=== PATIENT | female | born 1995 | race Native Hawaiian/Other Pacific Islander ===

== ENCOUNTER 2022-09-12 17:54 | Inpatient (IN) | payer SELFPAY ==
[~2022-09-12] VITALS: Ht 149 cm; Wt 75.1 kg
[2022-09-12 18:40] VITALS: BP 121/76
[2022-09-12] MEDS ORDERED: MINERAL OIL 30 ML UDC TOP PRN (19:30)
[2022-09-12] MEDS ORDERED: LACTATED RINGERS 1,000 ML IV SCH (19:30)
[2022-09-12] MEDS ORDERED: D5 LR IV SOLUTION 1,000 ML IV SCH (19:30)
[2022-09-12 19:36] LABS: BASOPHILS % (AUTO) 0 % (0-10); EOSINOPHILS % (AUTO) 1 % (0-10); HEMATOCRIT 37 % (35-52); HEMOGLOBIN 12.7 g/dL (11.5-16.0); LYMPHOCYTES % (AUTO) 18 % (12-44); MEAN CORPUSCULAR HEMOGLOBIN 31 pg (25-34); MEAN CORPUSCULAR HGB CONC 34 g/dL (32-36); MEAN CORPUSCULAR VOLUME 89 fL (80-99); MEAN PLATELET VOLUME 10.4 fL (9.0-12.2); MONOCYTES # (AUTO) 0.5 10^3/uL (0.0-1.0); MONOCYTES % (AUTO) 8 % (0-12); NEUTROPHILS # (AUTO) 4.1 10^3/uL (1.8-7.8); NEUTROPHILS % (AUTO) 72 % (42-75); PLATELET COUNT 174 10^3/uL (130-400); WHITE BLOOD COUNT 5.7 10^3/uL (4.3-11.0)
[2022-09-12 19:43] LABS: BILIRUBIN,URINE NEGATIVE (NEGATIVE); CLARITY,URINE SL CLOUDY; COLOR,URINE YELLOW; GLUCOSE, URINE (UA) NEGATIVE (NEGATIVE); KETONES,URINE NEGATIVE (NEGATIVE); LEUKOCYTE ESTERASE ,URINE NEGATIVE (NEGATIVE); NITRITE,URINE NEGATIVE (NEGATIVE); PROTEIN,URINE NEGATIVE (NEGATIVE)
[2022-09-12 19:52] LABS: BACTERIA,URINE TRACE /HPF; SQUAMOUS EPITHELIAL CELL,UR 25-50 /HPF
[2022-09-12 20:20] VITALS: BP 121/76
[2022-09-12] MEDS: LACTATED RINGERS 1,000 ML IV SCH (20:35)
[2022-09-12 20:54] VITALS: BP 121/81
[2022-09-12 23:00] VITALS: BP 119/80
[2022-09-13] VITALS (44 sets, daily range): BP systolic 107–146; BP diastolic 54–92
[2022-09-13] MEDS: LACTATED RINGERS 1,000 ML IV SCH ×2 (04:11→11:38)
[2022-09-13] MEDS ORDERED: D5 LR IV SOLUTION 1,000 ML IV SCH (08:00)
[2022-09-13] MEDS ORDERED: OXYTOCIN PRE-MIX DRIP 500 ML IV SCH (09:00)
[2022-09-13] MEDS: CATHETER FLUSH 10 ML SYR IV SCH ×2 (09:07→22:00)
[2022-09-13] MEDS ORDERED: LIDOCAINE 1% INJ 10 ML VIAL INJ ONE (09:15)
--- NOTE | 2022-09-13 11:07 | History & Physical-OB ---
OB - Chief Complaint & HPI Date/Time Date of Admission: Date of Admission: Sep 12, 2022 at 17:54 Date seen by a Provider: Sep 13, 2022 Time Seen by a Provider: 08:10 Chief Complaint/History OB-Reason for Admission/Chief: Induction of Labor Hx : 1 Expected Date of Delivery: Sep 17, 2022 Gestational Age in Weeks: 39 Gestational Age in Days: 2 Indication for induction: medical complication (GDM) History of Labs O+, Ab neg, Rub NON IMM, HIV/RPR/HepC NR, Hep B Pos but confirmatory test neg and repeat was Neg Allergies and Home Medications Allergies Coded Allergies: No Known Drug Allergies (Unverified , 09/12/22) Patient Home Medication List Home Medication List Reviewed: Yes OB - History Hx of Present Care: Yes Ultrasounds: Normal mid trimester US Obstetrical Complications: Gestational Diabetes (On Metformin) Medical Complications: None Information Maternal Gestational Diabetes: Yes Obstetrical History Hx : 1 Number of Living Children: 0 Patient Past Medical History None Social History/Family History Alcohol Use: Denies Use Recreational Drug Use: No Smoking Cessation: Never smoker Immunizations Influenza Vaccine Up-to-Date: No; Not Current Tetanus Booster (TDap): Less than 5yrs Rubella: not immune RPR/VDRL: Negative GBS Status: Negative HBsAG: Negative OB - Admission Exam Physical Exam Vitals: Vital Signs 09/12/22 09/13/22 20:20 06:34 Temp 36.5 Pulse 69 Resp 18 B/P (MAP) 135/75 (95) Pulse Ox 99 O2 Delivery Room Air HEENT: NCAT Heart: Rhythm Normal Lungs: Clear Abdomen: Gravid Cervical Dilatation: 5cm Effacement: 75% Station: -1 Membranes: Intact Heart Rate: 140's Accelerations: Accelerations Present Decelerations: No Decelerations Contractions on Admission: < 5 Minutes Apart Intensity: Moderate Kellogg Scoring Tool (Modified) Dilation (cm): 1-2cm (1) Effacement (%): 51-79% (2) Descent/Station: -1,0 (2) Cervix Consistency: Medium(1) Cervix Position: Anterior (2) Labs Laboratory Tests Test 09/12/22 18:50 09/12/22 19:32 09/12/22 19:40 09/13/22 00:04 Range/Units Glucose Level 97 70-105 MG/DL White Blood Count 5.7 4.3-11.0 10^3/uL Red Blood Count 4.16 3.80-5.11 10^6/uL Hemoglobin 12.7 11.5-16.0 g/dL Hematocrit 37 35-52 % Mean Corpuscular Volume 89 80-99 fL Mean Corpuscular Hemoglobin 31 25-34 pg Mean Corpuscular Hemoglobin Concent 34 32-36 g/dL Red Cell Distribution Width 13.2 10.0-14.5 % Platelet Count 174 130-400 10^3/uL Mean Platelet Volume 10.4 9.0-12.2 fL Immature Granulocyte % (Auto) 1 % Neutrophils (%) (Auto) 72 42-75 % Lymphocytes (%) (Auto) 18 12-44 % Monocytes (%) (Auto) 8 0-12 % Eosinophils (%) (Auto) 1 0-10 % Basophils (%) (Auto) 0 0-10 % Neutrophils # (Auto) 4.1 1.8-7.8 10^3/uL Lymphocytes # (Auto) 1.0 1.0-4.0 10^3/uL Monocytes # (Auto) 0.5 0.0-1.0 10^3/uL Eosinophils # (Auto) 0.0 0.0-0.3 10^3/uL Basophils # (Auto) 0.0 0.0-0.1 10^3/uL Immature Granulocyte # (Auto) 0.1 0.0-0.1 10^3/uL Urine Color YELLOW Urine Clarity SL CLOUDY Urine pH 6.0 5-9 Urine Specific [place] <=1.005 1.016-1.022 Urine Protein NEGATIVE NEGATIVE Urine Glucose (UA) NEGATIVE NEGATIVE Urine Ketones NEGATIVE NEGATIVE Urine Nitrite NEGATIVE NEGATIVE Urine Bilirubin NEGATIVE NEGATIVE Urine Urobilinogen 0.2 < = 1.0 MG/DL Urine Leukocyte Esterase NEGATIVE NEGATIVE Urine RBC (Auto) NEGATIVE NEGATIVE Urine RBC NONE /HPF Urine WBC NONE /HPF Urine Squamous Epithelial Cells 25-50 H /HPF Urine Crystals NONE /LPF Urine Bacteria TRACE /HPF Urine Casts NONE /LPF Urine Mucus NEGATIVE /LPF Urine Culture Indicated NO Glucometer 130 H 70-110 MG/DL Test 09/13/22 06:33 09/13/22 08:38 09/13/22 10:15 Range/Units Glucometer 141 H 84 87 70-110 MG/DL OB - Assessment/Plan/Diagnosis Assessment Assessment: induction of labor Admission Dx Third Trimester 39 week gestation GDM on oral medications Admission Status: Inpatient Order (span 2 midnights) Reason for Inpatient Admission: Labor and immediate post care Plan Other Plan 26 yo G1 @ 39.2 wga here for IOL for well controlled GDM Plan - Cytotec protocol - AROM clear 0810 - May augment with pitocin if needed - GBS neg - Q1 hr Blood sugars during active labor Copy Copies To 1: JOEL MARTINES MD, HOLLY R MD Sep 13, 2022 11:07
--- NOTE | 2022-09-13 15:19 | Labor Progress Note ---
Labor Progress Note Labor Progress Note Date Seen by Provider: Sep 13, 2022 Time Seen by Provider: 15:18 Subjective: Pt denies complaints. Feeling some pressure Objective: / Assessment/Plan: Kasey Rosario is a (26 /Para 1 / ,Gestational Age (wks)39.2 here for IOL for GDM CEFM/TOCO Pitocin off currently due to recurrent variable decelerations Position changes Anesthesia: Natural Vitals - Labs Vital Signs - I&O Vital Signs Date Time Temp Pulse Resp B/P (MAP) Pulse Ox O2 Delivery O2 Flow Rate FiO2 09/13/22 13:30 73 18 139/90 (106) 100 Non Rebreather 10.00 09/13/22 13:15 84 18 118/73 (88) 100 Room Air 09/13/22 13:15 Non Rebreather 10.00 09/13/22 13:00 Non Rebreather 10.00 09/13/22 13:00 67 18 129/68 (88) 100 Room Air 09/13/22 12:45 67 18 129/68 (88) 100 Room Air 09/13/22 12:30 75 18 142/67 (92) 100 Room Air 09/13/22 12:15 78 18 137/84 (101) 100 Room Air 09/13/22 12:00 68 18 121/70 (87) 100 Room Air 09/13/22 11:45 69 18 119/60 (79) 99 Room Air 09/13/22 11:30 36.3 67 18 126/77 (93) 100 Room Air 09/13/22 11:15 67 18 122/74 (90) 99 Room Air 09/13/22 11:00 70 18 113/71 (85) 100 Room Air 09/13/22 10:45 73 18 110/70 (83) 100 Room Air 09/13/22 10:30 78 18 123/63 (83) 100 Room Air 09/13/22 10:15 72 18 118/70 (86) 100 Room Air 09/13/22 10:00 71 18 118/77 (91) 100 Room Air 09/13/22 09:45 92 18 122/80 (94) 100 Room Air 09/13/22 09:30 86 18 120/74 (89) 100 Room Air 09/13/22 09:15 72 18 131/84 (100) 100 Room Air 09/13/22 08:00 69 18 100 Room Air 09/13/22 07:45 36.7 18 Room Air 09/13/22 07:00 36.2 18 Room Air 09/13/22 06:34 36.5 69 18 135/75 (95) Room Air 09/13/22 01:03 82 18 120/75 (90) Room Air 09/12/22 23:00 92 18 119/80 (93) Room Air 09/12/22 20:54 36.4 88 18 121/81 (94) Room Air 09/12/22 20:20 36.8 90 18 99 Room Air 09/12/22 18:40 36.8 87 18 121/76 (91) 99 Room Air I & O 09/13/22 07:00 Intake Total 2000 ml Balance 2000 ml Labs Laboratory Tests 09/12/22 18:50: Glucose Level 97 09/12/22 19:32: White Blood Count 5.7, Red Blood Count 4.16, Hemoglobin 12.7, Hematocrit 37, Mean Corpuscular Volume 89, Mean Corpuscular Hemoglobin 31, Mean Corpuscular Hemoglobin Concent 34, Red Cell Distribution Width 13.2, Platelet Count 174, Mean Platelet Volume 10.4, Immature Granulocyte % (Auto) 1, Neutrophils (%) (Auto) 72, Lymphocytes (%) (Auto) 18, Monocytes (%) (Auto) 8, Eosinophils (%) (Auto) 1, Basophils (%) (Auto) 0, Neutrophils # (Auto) 4.1, Lymphocytes # (Auto) 1.0, Monocytes # (Auto) 0.5, Eosinophils # (Auto) 0.0, Basophils # (Auto) 0.0, Immature Granulocyte # (Auto) 0.1 09/12/22 19:40: Urine Color YELLOW, Urine Clarity SL CLOUDY, Urine pH 6.0, Urine Specific [place] <=1.005, Urine Protein NEGATIVE, Urine Glucose (UA) NEGATIVE, Urine Ketones NEGATIVE, Urine Nitrite NEGATIVE, Urine Bilirubin NEGATIVE, Urine Urobilinogen 0.2, Urine Leukocyte Esterase NEGATIVE, Urine RBC (Auto) NEGATIVE, Urine RBC NONE, Urine WBC NONE, Urine Squamous Epithelial Cells 25-50H, Urine Crystals NONE, Urine Bacteria TRACE, Urine Casts NONE, Urine Mucus NEGATIVE, Urine Culture Indicated NO 09/13/22 00:04: Glucometer 130H 09/13/22 06:33: Glucometer 141H 09/13/22 08:38: Glucometer 84 09/13/22 10:15: Glucometer 87 09/13/22 11:35: Glucometer 108 09/13/22 12:58: Glucometer 79 JOEL MARTINES MD Sep 13, 2022 15:19
[2022-09-13] MEDS ORDERED: CITRIC ACID/SOB CIT (BICITRA) 30 ML UDC ONE (17:45)
[2022-09-13] MEDS ORDERED: ceFAZolin INJECTION 2,000 MG ONE (17:45)
[2022-09-13] MEDS ORDERED: METOCLOPRAMIDE INJ 10 MG/2 ML (REGLAN) ONE (17:45)
[2022-09-13] MEDS ORDERED: LACTATED RINGERS 0 ML IV ONE (17:45)
[2022-09-13] MEDS ORDERED: NS (IVPB) 50 ML ONE (17:46)
[2022-09-13] MEDS ORDERED: FAMOTIDINE 20MG/2ML IV (PEPCID) ONE (17:46)
--- NOTE | 2022-09-13 17:58 | Labor Progress Note ---
Labor Progress Note Labor Progress Note Date Seen by Provider: Sep 13, 2022 Time Seen by Provider: 17:10 Subjective: Patient feeling ctxs. Poor pusher. Having distress and making no progress with pushing Objective: Complete/100/-2 Assessment/Plan: Kasey Rosario is a (26 /Para 1 / ,Gestational Age (wks)39.2 here for IOL for GDM CEFM/TOCO Having distress and making minimal to no progress Primary C/s Urgent called and Dr Reyes called and OR crew called Vitals - Labs Vital Signs - I&O Vital Signs Date Time Temp Pulse Resp B/P (MAP) Pulse Ox O2 Delivery O2 Flow Rate FiO2 09/13/22 15:00 69 18 131/78 (95) 100 Non Rebreather 10.00 09/13/22 14:45 72 18 146/84 (104) 100 Non Rebreather 10.00 09/13/22 14:30 101 18 140/89 (106) 100 Non Rebreather 10.00 09/13/22 14:15 69 18 124/83 (97) 100 Non Rebreather 10.00 09/13/22 14:00 73 18 130/85 (100) 100 Non Rebreather 10.00 09/13/22 13:45 82 18 139/90 (106) 100 Non Rebreather 10.00 09/13/22 13:30 73 18 139/90 (106) 100 Non Rebreather 10.00 09/13/22 13:15 84 18 118/73 (88) 100 Room Air 09/13/22 13:15 Non Rebreather 10.00 09/13/22 13:00 Non Rebreather 10.00 09/13/22 13:00 67 18 129/68 (88) 100 Room Air 09/13/22 12:45 67 18 129/68 (88) 100 Room Air 09/13/22 12:30 75 18 142/67 (92) 100 Room Air 09/13/22 12:15 78 18 137/84 (101) 100 Room Air 09/13/22 12:00 68 18 121/70 (87) 100 Room Air 09/13/22 11:45 69 18 119/60 (79) 99 Room Air 09/13/22 11:30 36.3 67 18 126/77 (93) 100 Room Air 09/13/22 11:15 67 18 122/74 (90) 99 Room Air 09/13/22 11:00 70 18 113/71 (85) 100 Room Air 09/13/22 10:45 73 18 110/70 (83) 100 Room Air 09/13/22 10:30 78 18 123/63 (83) 100 Room Air 09/13/22 10:15 72 18 118/70 (86) 100 Room Air 09/13/22 10:00 71 18 118/77 (91) 100 Room Air 09/13/22 09:45 92 18 122/80 (94) 100 Room Air 09/13/22 09:30 86 18 120/74 (89) 100 Room Air 09/13/22 09:15 72 18 131/84 (100) 100 Room Air 09/13/22 08:00 69 18 100 Room Air 09/13/22 07:45 36.7 18 Room Air 09/13/22 07:00 36.2 18 Room Air 09/13/22 06:34 36.5 69 18 135/75 (95) Room Air 09/13/22 01:03 82 18 120/75 (90) Room Air 09/12/22 23:00 92 18 119/80 (93) Room Air 09/12/22 20:54 36.4 88 18 121/81 (94) Room Air 09/12/22 20:20 36.8 90 18 99 Room Air 09/12/22 18:40 36.8 87 18 121/76 (91) 99 Room Air I & O 09/13/22 07:00 Intake Total 2000 ml Balance 2000 ml Labs Laboratory Tests 09/12/22 18:50: Glucose Level 97 09/12/22 19:32: White Blood Count 5.7, Red Blood Count 4.16, Hemoglobin 12.7, Hematocrit 37, Mean Corpuscular Volume 89, Mean Corpuscular Hemoglobin 31, Mean Corpuscular Hemoglobin Concent 34, Red Cell Distribution Width 13.2, Platelet Count 174, Mean Platelet Volume 10.4, Immature Granulocyte % (Auto) 1, Neutrophils (%) (Auto) 72, Lymphocytes (%) (Auto) 18, Monocytes (%) (Auto) 8, Eosinophils (%) (Auto) 1, Basophils (%) (Auto) 0, Neutrophils # (Auto) 4.1, Lymphocytes # (Auto) 1.0, Monocytes # (Auto) 0.5, Eosinophils # (Auto) 0.0, Basophils # (Auto) 0.0, Immature Granulocyte # (Auto) 0.1 09/12/22 19:40: Urine Color YELLOW, Urine Clarity SL CLOUDY, Urine pH 6.0, Urine Specific [place] <=1.005, Urine Protein NEGATIVE, Urine Glucose (UA) NEGATIVE, Urine Ketones NEGATIVE, Urine Nitrite NEGATIVE, Urine Bilirubin NEGATIVE, Urine Urobilinogen 0.2, Urine Leukocyte Esterase NEGATIVE, Urine RBC (Auto) NEGATIVE, Urine RBC NONE, Urine WBC NONE, Urine Squamous Epithelial Cells 25-50H, Urine Crystals NONE, Urine Bacteria TRACE, Urine Casts NONE, Urine Mucus NEGATIVE, Urine Culture Indicated NO 09/13/22 00:04: Glucometer 130H 09/13/22 06:33: Glucometer 141H 09/13/22 08:38: Glucometer 84 09/13/22 10:15: Glucometer 87 09/13/22 11:35: Glucometer 108 09/13/22 12:58: Glucometer 79 09/13/22 14:14: Glucometer 93 09/13/22 16:50: Glucometer 93 JOEL MARTINES MD Sep 13, 2022 17:58
[2022-09-13] MEDS ORDERED: CITRIC ACID/SOB CIT (BICITRA) 30 ML UDC PO ONE (18:00)
[2022-09-13] MEDS ORDERED: LACTATED RINGERS 1,000 ML IV PRN ×2 (18:00)
[2022-09-13] MEDS ORDERED: METOCLOPRAMIDE INJ 10 MG/2 ML (REGLAN) IV ONE (18:00)
[2022-09-13] MEDS ORDERED: ceFAZolin INJECTION 2,000 MG in NS (IVPB) 50 ML IV ONE (18:00)
[2022-09-13] MEDS ORDERED: FAMOTIDINE 20MG/2ML IV (PEPCID) IV ONE (18:00)
[2022-09-13] MEDS ORDERED: OXYTOCIN PRE-MIX DRIP 1,000 ML IV ONE (18:07)
[2022-09-13] MEDS ORDERED: fentaNYL INJ 100 MCG/2 ML AMP ONE (18:07)
[2022-09-13] MEDS ORDERED: ONDANSETRON 4 MG/2 ML (SDV) Z0FRAN ONE (18:07)
--- NOTE | 2022-09-13 18:27 | Progress Note-Pre Operative ---
Pre-Operative Progress Note Date of Available H&P: Sep 13, 2022 Date H&P Reviewed: Sep 13, 2022 Time H&P Reviewed: 18:27 History & Physical: H&P Reviewed, Patient Examed, No changes noted Pre-Operative Diagnosis: Suspected CPD, intolerance of second stage labor VANDA ELIAS DO Sep 13, 2022 18:27
--- NOTE | 2022-09-13 18:28 | Discharge Inst-Women's Service ---
Discharge Inst-Women's Serv Depart Medication/Instructions New, Converted or Re-Newed RX: Transmitted to Pharmacy Problems Reviewed?: Yes Consults/Follow Up Additional Follow Up: Yes Orders/Referrals Dr. Reyes in 7-10 days and w/ Dr. Bonds in 6 weeks Activity Activity: Activity as Tolerated Driving Instructions: No Driving for 1 Week NO SMOKING: NO SMOKING Nothing Inside Vagina: No Douching, No [place], No Tampons Diet Discharge Diet: No Restrictions Symptoms to Report to : Bleeding Excessive, Pain Increased, Fever Over 101 Degrees F, Vaginal Bleeding Increase, Questions/Concerns For Any Problems or Questions: Contact Your Physician Skin/Wound Care Infection Signs and Symptoms: Increased Redness, Foul Odor of Wound, Increased Drainage, Skin Itchy or Has a Rash, Increased Swelling, Temperature Above 101 F Operative Area Clean and Dry: Keep Incision Clean/Dry Stitches/[place]/Dermabond: Dermabond, Care of Stitches Bathing Instructions: VANDA Caruso DO Sep 13, 2022 18:28
[2022-09-13] MEDS ORDERED: ACHD5005 PO (18:29)
[2022-09-13] MEDS ORDERED: IBUP-844 PO (18:29)
[2022-09-13] MEDS ORDERED: DOCU100C37 PO (18:29)
[2022-09-13] MEDS ORDERED: TETANUS,DIPTH,PERTUSS P/F (BOOSTRIX) 0.5 ML VIAL IM SCH (18:30)
[2022-09-13] MEDS ORDERED: MEASLES,MUMPS,RUBELLA 1 EA INJ SC SCH (18:30)
[2022-09-13] MEDS ORDERED: ONDANSETRON 4 MG/2 ML (SDV) Z0FRAN IVP PRN ×2 (18:30→19:45)
[2022-09-13] MEDS ORDERED: NALOXONE 0.4 MG/ML 1 ML (NARCAN) VIAL IV PRN ×3 (18:30→19:45)
[2022-09-13] MEDS ORDERED: KETOROLAC 30 MG/ML VIAL ONE (18:32)
[2022-09-13] MEDS ORDERED: METHYLERGONOVINE 0.2 MG/ML (METHERGINE) AMP ONE (18:48)
[2022-09-13] MEDS ORDERED: METHYLERGONOVINE 0.2 MG/ML (METHERGINE) AMP IM ONE (18:51)
[2022-09-13] MEDS: KETOROLAC 30 MG/ML VIAL IV SCH (19:00)
[2022-09-13] MEDS: OXYTOCIN PRE-MIX DRIP 500 ML IV SCH ×2 (19:00→20:46)
[2022-09-13] MEDS ORDERED: BUPIVACAINE 0.25% 10 ML (SENSORCAINE) VIAL ONE (19:06)
--- NOTE | 2022-09-13 19:23 | OPERATIVE REPORT ---
PREOPERATIVE DIAGNOSES: 1. A 26-year-old female at 39 weeks and 4 days gestation. 2. Cephalopelvic disproportion. 3. intolerance of second stage labor. POSTOPERATIVE DIAGNOSES: 1. A 26-year-old female at 39 weeks and 4 days gestation. 2. Cephalopelvic disproportion. 3. intolerance of second stage labor. PROCEDURE: Primary low transverse section. SURGEON: Cirilo Elias DO ANESTHESIA: Spinal. ESTIMATED BLOOD LOSS: 250 mL. URINE OUTPUT: 150 mL clear at the end of the procedure. FLUIDS: 1200 mL of lactated Ringer's solution. FINDINGS: A live female , weight pending, Apgars of 8 and 8. Grossly normal appearing uterus, bilateral tubes and ovaries. SPECIMENS SENT: Placenta. INDICATIONS FOR PROCEDURE: This is a 26-year-old female is the patient who had her care with [facility] and Dr. Bonds. Her was uncomplicated with the exception of intolerance of labor and suspected cephalopelvic disproportion. I was contacted by Dr. Bonds urgently to come to proceed with delivery as the distress was suspected in the second stage of labor with recurrent variable decelerations. Due to this, I presented, the patient had already consented for the procedure by Dr. Bonds. Risks have been reviewed and after all of her questions were answered, consent was obtained. The patient was taken to the operating room. OPERATIVE REPORT IN DETAIL: Once in the operating room, spinal anesthesia was administered and found to be adequate. She was placed in the supine position with leftward tilt, prepped and draped in normal sterile fashion. A timeout was performed. Anesthesia was tested. I then make a Pfannenstiel skin incision with a knife and carried to underlying fascia using Bovie cautery. The fascia was then extended laterally using Bovie cautery. The superior aspect of fascial incision was then grasped with Doyle clamps, tented up and dissected off the underlying rectus muscles. The inferior aspect of the fascial incision was then grasped with Doyle clamps, tented up and dissected off the underlying rectus muscles. Rectus muscles were dissected down the midline, which exposed the peritoneum, which I entered bluntly and extended using blunt traction. Ham ring retractor was placed in the peritoneal incision, which offers excellent lateral sidewall retraction. I identified the lower uterine segment was found to be thinned out. I make a low transverse incision to the vesicouterine peritoneum and bluntly dissected off the lower uterine segment, creating a bladder flap. I then proceeded with my myotomy until membranes were visualized, at which point I extended the uterine incision laterally and superiorly using bandage scissors. Amniotomy was performed. In the process of doing this, clear fluid was noted. The was found in vertex presentation. With gentle fundal pressure, the 's head was elevated up to the incision where was delivered through the incision. The nares and oropharynx were bulb suctioned. Anterior and posterior shoulders were delivered. The infant was brought to the operative field where cords were clamped, cut and was handed off to waiting nurses in attendance. Cord blood was collected. Three-vessel cord with intact placenta was delivered spontaneously thereafter. IV Pitocin was initiated to facilitate uterine contraction. Uterine fundus confirmed by manual massage. Uterus was exteriorized and cleared of all endometrial clots and debris. I then proceeded with closing the uterine incision using 0 Vicryl suture in a running locked fashion. Second layer of imbricating 0 Monocryl was placed. Excellent hemostasis was noted after doing this. I then placed the uterus back in the pelvis and copiously irrigated the pelvis using normal saline. Once again, there was no active bleeding from any of my dissection planes, but there was some significant uterine atony; therefore, I have anesthesia administer 0.2 mg of Methergine IM with some resolution of the uterine tone. There was also a little bit of oozing from the lateral aspect of the incision, this was covered with Surgicel and then covered again with Interceed. I then removed the Ham ring retractor and proceeded with closing the peritoneum using 3-0 Vicryl suture in a running fashion. The rectus muscle was reapproximated using 0 Vicryl suture in the fascia. The fascia was reapproximated using 0 Vicryl suture in a running fashion. The subcutaneous tissue was reapproximated using 3-0 plain interrupted subcutaneous stitch and skin was reapproximated using 4-0 Monocryl running subcuticular. Dermabond was applied to incision and sterile dressing was adhesed with white tape. The patient tolerated the procedure well and was taken to recovery in stable condition. Lap and sponge counts were correct at the end of the procedure. Instrument counts correct as well. Job ID: [id number] DocumentID: [id number] Dictated Date: 09/13/2022 19:03:49 Clinical Psychologist Private Practice Date: 09/13/2022 19:20:00 Dictated By: CIRILO ELIAS DO
[2022-09-13] MEDS ORDERED: PROMETHAZINE INJ 25 MG/ML (PHENERGAN) AMP IVP ONE (19:45)
[2022-09-13] MEDS ORDERED: HYDROmorphone 2 MG/ML VIAL (DILAUDID) IV ONE (19:45)
[2022-09-13] MEDS ORDERED: MEPERIDINE (DEMEROL) INJ 50 MG/ML IVP ONE (19:45)
[2022-09-13] MEDS ORDERED: morphine INJ 10 MG/ML 1ML (SYR OR VIAL) IVP ONE (19:45)
[2022-09-13] MEDS ORDERED: ONDANSETRON 4 MG/2 ML (SDV) Z0FRAN IV PRN (19:45)
[2022-09-13] MEDS ORDERED: diphenhydrAMINE 50 MG/ML INJ (BENADRYL) IV PRN (19:45)
[2022-09-13] MEDS ORDERED: METOCLOPRAMIDE INJ 10 MG/2 ML (REGLAN) IV PRN (19:45)
[2022-09-13] MEDS: DOCUSATE SODIUM 100 MG (COLACE) CAP PO SCH (20:47)
[2022-09-13] MEDS ORDERED: CATHETER FLUSH 10 ML SYR IV SCH (22:00)
[2022-09-14 00:31] VITALS: BP 109/60
[2022-09-14] MEDS: KETOROLAC 30 MG/ML VIAL IV SCH ×3 (00:38→12:13)
[2022-09-14 03:56] VITALS: BP 100/55
[2022-09-14 04:36] LABS: HEMOGLOBIN 10.1 g/dL (11.5-16.0)
[2022-09-14 04:37] LABS: BASOPHILS % (AUTO) 0 % (0-10); EOSINOPHILS % (AUTO) 0 % (0-10); HEMATOCRIT 30 % (35-52); LYMPHOCYTES # (AUTO) 1.3 10^3/uL (1.0-4.0); LYMPHOCYTES % (AUTO) 8 % (12-44); MEAN CORPUSCULAR HEMOGLOBIN 29 pg (25-34); MEAN CORPUSCULAR HGB CONC 34 g/dL (32-36); MEAN CORPUSCULAR VOLUME 87 fL (80-99); MEAN PLATELET VOLUME 10.3 fL (9.0-12.2); MONOCYTES # (AUTO) 0.9 10^3/uL (0.0-1.0); MONOCYTES % (AUTO) 6 % (0-12); NEUTROPHILS # (AUTO) 12.7 10^3/uL (1.8-7.8); NEUTROPHILS % (AUTO) 85 % (42-75); PLATELET COUNT 142 10^3/uL (130-400)
[2022-09-14 04:59] LABS: SMEAR SCAN COMMENT YES
--- NOTE | 2022-09-14 07:31 | Postpartum Progress Note ---
SUSANNE MACDONALD 09/14/22 0731: Note Note Day # 1 Subjective: Patient is without complaints. Ambulating, voiding. Tolerating a regular diet without nausea or vomiting. Normal lochia. Pain is well controlled with oral pain medications. Breast and bottle feeding. Objective: Patient is seated in bed at time of evaluation, no signs of distress. Physical Exam: General - Alert and oriented, no apparent distress Abdomen - Soft, appropriately tender to palpation, non-distended, fundus firm at umbilicus Extremities - no edema, negative Michael's bilaterally Incision c/d/i Assessment: POD 1 s/p LTCS Acute blood loss anemia Plan: Routine care. Encourage breast feeding. Encourage ambulation. Ferrous sulfate supplementation. Plan for discharge tomorrow. Vitals - Labs Vital Signs - I&O Vital Signs Date Time Temp Pulse Resp B/P (MAP) Pulse Ox O2 Delivery O2 Flow Rate FiO2 09/14/22 03:56 37.1 98 18 100/55 (70) 96 Room Air 09/14/22 00:31 37.2 75 20 109/60 (76) 97 Room Air 09/13/22 20:12 36.8 20 138/92 (107) 97 Room Air 09/13/22 20:12 Room Air 09/13/22 19:57 36.8 21 135/72 (93) 96 Room Air 09/13/22 19:57 Room Air 09/13/22 19:42 36.8 20 122/76 (91) 96 Room Air 09/13/22 19:42 Room Air 09/13/22 19:27 36.9 20 113/77 (89) 97 Room Air 09/13/22 19:27 Room Air 09/13/22 19:12 37.3 18 110/54 (72) 98 Room Air 09/13/22 19:12 Room Air 09/13/22 18:15 95 18 129/73 (91) Non Rebreather 10.00 09/13/22 18:00 77 18 127/75 (92) Non Rebreather 10.00 09/13/22 17:45 71 18 123/63 (83) Non Rebreather 10.00 09/13/22 17:30 73 18 131/62 (85) Non Rebreather 10.00 09/13/22 17:15 36.8 81 18 134/65 (88) 99 Non Rebreather 10.00 09/13/22 17:00 63 18 128/63 (84) 100 Non Rebreather 10.00 09/13/22 16:45 66 18 119/70 (86) 100 Non Rebreather 10.00 09/13/22 16:30 71 18 117/71 (86) 100 Non Rebreather 10.00 09/13/22 16:15 72 18 107/61 (76) 100 Non Rebreather 10.00 09/13/22 16:00 77 18 110/60 (77) 100 Non Rebreather 10.00 09/13/22 15:45 75 18 119/61 (80) 100 Non Rebreather 10.00 09/13/22 15:30 69 18 131/78 (95) 100 Non Rebreather 10.00 09/13/22 15:15 69 18 131/78 (95) 100 Non Rebreather 10.00 09/13/22 15:00 69 18 131/78 (95) 100 Non Rebreather 10.00 09/13/22 14:45 72 18 146/84 (104) 100 Non Rebreather 10.00 09/13/22 14:30 101 18 140/89 (106) 100 Non Rebreather 10.00 09/13/22 14:15 69 18 124/83 (97) 100 Non Rebreather 10.00 09/13/22 14:00 73 18 130/85 (100) 100 Non Rebreather 10.00 09/13/22 13:45 82 18 139/90 (106) 100 Non Rebreather 10.00 09/13/22 13:30 73 18 139/90 (106) 100 Non Rebreather 10.00 09/13/22 13:15 84 18 118/73 (88) 100 Room Air 09/13/22 13:15 Non Rebreather 10.00 09/13/22 13:00 Non Rebreather 10.00 09/13/22 13:00 67 18 129/68 (88) 100 Room Air 09/13/22 12:45 67 18 129/68 (88) 100 Room Air 09/13/22 12:30 75 18 142/67 (92) 100 Room Air 09/13/22 12:15 78 18 137/84 (101) 100 Room Air 09/13/22 12:00 68 18 121/70 (87) 100 Room Air 09/13/22 11:45 69 18 119/60 (79) 99 Room Air 09/13/22 11:30 36.3 67 18 126/77 (93) 100 Room Air 09/13/22 11:15 67 18 122/74 (90) 99 Room Air 09/13/22 11:00 70 18 113/71 (85) 100 Room Air 09/13/22 10:45 73 18 110/70 (83) 100 Room Air 09/13/22 10:30 78 18 123/63 (83) 100 Room Air 09/13/22 10:15 72 18 118/70 (86) 100 Room Air 09/13/22 10:00 71 18 118/77 (91) 100 Room Air 09/13/22 09:45 92 18 122/80 (94) 100 Room Air 09/13/22 09:30 86 18 120/74 (89) 100 Room Air 09/13/22 09:15 72 18 131/84 (100) 100 Room Air 09/13/22 08:00 69 18 100 Room Air 09/13/22 07:45 36.7 18 Room Air I & O 09/14/22 07:00 Intake Total 3950 ml Output Total 1435 ml Balance 2515 ml Labs Laboratory Tests 09/13/22 08:38: Glucometer 84 09/13/22 10:15: Glucometer 87 09/13/22 11:35: Glucometer 108 09/13/22 12:58: Glucometer 79 09/13/22 14:14: Glucometer 93 09/13/22 16:50: Glucometer 93 09/13/22 19:55: Glucometer 98 09/14/22 04:25: White Blood Count 15.0H, Red Blood Count 3.43L, Hemoglobin 10.1#L, Hematocrit 30L, Mean Corpuscular Volume 87, Mean Corpuscular Hemoglobin 29, Mean Corpuscular Hemoglobin Concent 34, Red Cell Distribution Width 13.1, Platelet Count 142, Mean Platelet Volume 10.3, Immature Granulocyte % (Auto) 1, [place] trophils (%) (Auto) 85H, Lymphocytes (%) (Auto) 8L, Monocytes (%) (Auto) 6, Eosinophils (%) (Auto) 0, Basophils (%) (Auto) 0, Neutrophils # (Auto) 12.7H, Lymphocytes # (Auto) 1.3, Monocytes # (Auto) 0.9, Eosinophils # (Auto) 0.0, Basophils # (Auto) 0.0, Immature Granulocyte # (Auto) 0.1, Percent Immature Platelet Fraction 3.6, Glucose Level 125H, Smear Scan YES Microbiology 09/13/22 MRSA Screen - Preliminary, Resulted MRSA not isolated CIRILO ELIAS DO 09/14/22 0818: Note Note Verification and Attestation of Medical Student E/M Service A medical student performed and documented this service in my presence. I reviewed and verified all information documented by the medical student and made modifications to such information, when appropriate. I personally performed the physical exam and medical decision making. Cirilo Elias Sep 14, 2022,08:18 SUSANNE MACDONALD Sep 14, 2022 07:31 CIRILO ELIAS DO Sep 14, 2022 08:18
--- NOTE | 2022-09-14 07:40 | Anesthesia-Regional Post-Op ---
Regional Patient Condition Mental Status: Alert, Oriented x3 Circulation: Same as Pre-Op Headache: Absent Sensation: Full Recovery Motor Block: Absent Post Op Complications Complications None Follow Up Care/Instructions Patient Instructions None needed. Anesthesia/Patient Condition Patient is doing well, no complaints, stable vital signs, no apparent adverse anesthesia problems. No complications reported per nursing. IMELDA DIAS CRNA Sep 14, 2022 07:40
[2022-09-14 07:45] VITALS: BP 115/62
[2022-09-14] MEDS: DOCUSATE SODIUM 100 MG (COLACE) CAP PO SCH ×2 (08:39→20:13)
[2022-09-14 11:52] VITALS: BP 98/67
[2022-09-14 16:05] VITALS: BP 105/54
[2022-09-14] MEDS: IBUPROFEN 600 MG (MOTRIN) TAB PO SCH (18:35)
[2022-09-14] MEDS: HYDROcodone/APAP 5 MG/325 MG (LORTAB) TAB PO PRN (20:12)
[2022-09-14 20:15] VITALS: BP 117/61
[2022-09-15 00:10] VITALS: BP 116/65
[2022-09-15] MEDS: IBUPROFEN 600 MG (MOTRIN) TAB PO SCH ×3 (00:10→12:34)
[2022-09-15 06:30] VITALS: BP 100/51
[2022-09-15 10:57] VITALS: BP 125/75
[2022-09-15] MEDS: HYDROcodone/APAP 5 MG/325 MG (LORTAB) TAB PO PRN (10:59)
[2022-09-15] MEDS: DOCUSATE SODIUM 100 MG (COLACE) CAP PO SCH (10:59)
--- NOTE | 2022-09-15 15:12 | Postpartum Progress Note ---
Post Op Post-operative Day #2 s/p primary LTCS Subjective: Patient is without complaints. Ambulating, voiding without difficulty. Tolerating a regular diet without nausea or vomiting. Normal lochia. Pain is well controlled with oral pain medications. Passing flatus. She is breast and formula feeding. She denies any CP, SOB, palpitations ARRIAZA, vision abnormalities, lightheadedness, dizziness. LE pain Objective: Vital Signs 09/13/22 09/15/22 18:15 10:57 Temp 37.0 Pulse 83 Resp 16 B/P (MAP) 125/75 (92) Pulse Ox 99 O2 Delivery Room Air O2 Flow Rate 10.00 Physical Exam: General - Alert and oriented, no apparent distress Lungs: CTAB, symmetric chest rise, non-labored breathing Heart: normal rate and peripheral perfusion. Regular rhythm, no murmurs Abdomen - + bowel sounds, Soft, appropriately tender to palpation, non-distended Incision - clean, dry and intact; no erythema or induration, no drainage Extremities - +1 equal bilat LE edema, negative Michael's bilaterally, NTTP Assessment: post-operative day # 2, status post primary low transverse . Recovering well, hemodynamically stable Plan: - Routine post-operative care. - GDM: on metformin during , discontinued PP. fasting BG level of 125 on PPD#1. No further checks while inpatient. Will obtain random level prior to discharge. Pt to continue home CBG checks and bring logs to visit with Dr. Reyes on 09/19/22 as scheduled - Encourage breast feeding. - Encourage ambulation. - VTE prophylaxis: Ambulation, SCDs while in bed - Acute blood loss anemia: PP hgb level of 10.1g/dL (from 12.7 pre-op level). Patient is asymptomatic. Continue Ferrous sulfate supplementation. - Plan for discharge today Vitals - Labs Vital Signs - I&O Vital Signs Date Time Temp Pulse Resp B/P (MAP) Pulse Ox O2 Delivery O2 Flow Rate FiO2 09/15/22 10:57 37.0 83 16 125/75 (92) 99 Room Air 09/15/22 06:30 36.3 78 16 100/51 (67) 98 Room Air 09/15/22 00:10 36.3 86 16 116/65 (82) 100 Room Air 09/14/22 20:15 36.7 88 16 117/61 (79) Room Air 09/14/22 16:05 36.8 76 18 105/54 (71) Room Air Labs Microbiology 09/13/22 MRSA Screen - Final, Complete MRSA not isolated CHRIS MENJIVAR MD Sep 15, 2022 15:11
[2022-09-15 15:25] VITALS: BP 107/68
[2022-09-15] MEDS ORDERED: FERR325T24 PO (15:30)
--- NOTE | 2022-09-15 15:34 | Short Stay Summary ---
Discharge Summary Hospital Course Was the Problem List Reviewed?: Yes Problems/Dx: (1) intolerance to labor, delivered, current hospitalization Status: Resolved (2) Gestational diabetes mellitus Status: Resolved (3) delivery delivered Status: Acute (4) Elective induction of labor planned Status: Resolved Final Diagnosis: s/p delivery Hospital Course Date of Admission: Sep 12, 2022 at 17:54 Admission Diagnosis: -Intrauterine at 39 weeks gestational age -Gestational Diabetes Mellitus - maternal Obesity -Induction of labor Family Physician/Provider: Dr. Bonds Date of Discharge: 09/15/22 Discharge Diagnosis: - s/p primary Low transverse - intolerance to labor - Obesity Hospital Course: Ms. Rosario is a 26 yo now , who presented to L&D for scheduled induction of labor. Patient's care was at [facility] in [place], [place] with Dr. Bonds. Her was complicated by maternal obesity, and gestational diabetes mellitus. On presentation, patient was dilated 1cm, membranes intact. Vitals signs were stable, physical exam was benign. FHT was reassuring and she was admitted. She was GBS X, and received antibiotics/ no antibiotic therapy was begun. She received cytotec for cervical ripening. AROM was performed, and amniotic fluid was clear. Pitocin was started for induction of labor. She progressed to complete cervical dilation began to push. A delivery was recommended given intolerance in the second stage of labor with poor maternal pushing effort, without good descent. Patient desired to proceed. Patient underwent a LTCS on 09/13/2022, and delivered a living without complications. Surgical EBL 250 ml. had Apgars of 8 at 1 minute and 8 at 5 minutes8. Please see operative report for full details. Patient's course was uncomplicated. On POD#1, she had a Hgb 10.1g/dL, and was doing well. By POD#2 she had a normal random blood glucose level (130), and was meeting all goals. She was ambulating without difficulty, appropriate urine output, positive flatus, tolerating diet, minimal lochia, and pain was controlled, and desired discharge. Incision was CDI without evidence of infection on the day of discharge. Patient was discharged to home on POD#2 in stable medical condition Labs and Pending Lab Test: Laboratory Tests 3/ 15:28: Glucometer 130H Microbiology 3//23 MRSA Screen - Final, Complete MRSA not isolated Home Meds Active Ferosul (Ferrous Sulfate) 325 Mg (65 Mg Iron) Tablet 325 Mg PO DAILY 30 Days Docusate Sodium 100 Mg Capsule 100 Mg PO BID PRN Hydrocodone-Acetamin 5-325 mg (Hydrocodone/Acetaminophen) 5 Mg-325 Mg Tablet 1-2 Ea PO Q6HR PRN Ibu (Ibuprofen) 600 Mg Tablet 600 Mg PO Q6H Assessment/Pt Instructions - Pelvic Rest for 6 weeks; no sex, tampon use, or douching - No heavy lifting greater than 5 to 10 pounds or baby's weight for 6 weeks - Return to clinic in 1 week for incision check - Return to clinic in 6 weeks for visit - Return for temperature >100.4 degrees, vaginal bleeding greater than 2 maxi pads in 1 hour over 4 hours, abdominal pain, intractable nausea or vomiting, headaches that don't go away with treatment, spots in your vision, chest pain/shortness of breath or other concerns. - Keep all follow up appointments. Discharge Instructions Discharge Diet: No Restrictions Activity as Tolerated: Yes Discharge Physical Examination General Appearance: Alert, Oriented X3, No Acute Distress HEENT: EOMI Respiratory: Clear to Auscultation, Normal Air Movement Cardiovascular: Regular Rate, No Murmurs Abdominal: Normal Bowel Sounds, Soft, No Tenderness, No Masses Extremities: No Clubbing, No Cyanosis, Other (+ 1 equal bilat LE edema) Skin: No Rashes, No Breakdown Neuro: Normal Gait, Normal Speech, Sensation Intact, Reflexes 2+ Psych/Mental Status: Mental Status NL, Mood NL Allergies: Coded Allergies: No Known Drug Allergies (Unverified , 09/12/22) Discharge Summary Date of Admission Sep 12, 2022 at 17:54 Date of Discharge Discharge Date: Sep 15, 2022 CHRIS MENJIVAR MD Sep 15, 2022 15:34
== END 2022-09-15 16:45 | disposition home or self-care (01) | DRG 787 ==
LOC: LDRP 17:54
PROVIDERS: ADMIT Family Medicine; ATTEND Family Medicine
PROC: 3E0DXGC Introduction of Other Therapeutic Substance into Mouth and Pharynx, External Approach (ICD-10-PCS; 2022-09-12)
PROC: 10907ZC Drainage of Amniotic Fluid, Therapeutic from Products of Conception, Via Natural or Artificial Opening (ICD-10-PCS; 2022-09-13)
PROC: 10D00Z1 Extraction of Products of Conception, Low, Open Approach (ICD-10-PCS; principal; 2022-09-13 18:21)
DX: O24.425 Gestational diabetes mellitus in childbirth, controlled by oral hypoglycemic drugs (principal); D62 Acute posthemorrhagic anemia; Z37.0 Single live birth; O65.9 Obstructed labor due to maternal pelvic abnormality, unspecified; O76 Abnormality in fetal heart rate and rhythm complicating labor and delivery; O75.89 Other specified complications of labor and delivery; O90.81 Anemia of the puerperium; O99.214 Obesity complicating childbirth; Z3A.39 39 weeks gestation of pregnancy; O61.0 Failed medical induction of labor
CPT/HCPCS: 36415; 81000; 82947; 85025; 86780; 86850; 86900; 86901; 87081